=== PATIENT | female | born 1975 | race Caucasian/White ===

== ENCOUNTER 2019-01-30 18:48 | Emergency (ER) | payer MEDICAID ==
[~2019-01-30] VITALS: Ht 162.6 cm; Wt 93.9 kg
[2019-01-30 19:12] VITALS: Ht 162.6 cm; Wt 93.9 kg
[2019-01-30 20:05] LABS: BASOPHIL % 0.4 % (0-2); PLATELET COUNT 373 x10^3mcL (130-400)
[2019-01-30 20:05] LABS: microscopic required? YES; urine erythrocyte 3+ (NEGATIVE)
[2019-01-30 20:08] LABS: RED CELL DISTRIBUTION WIDTH 16.5 % (11.5-14.5)
[2019-01-30 20:30] LABS: T3 TOTAL 0.94 ng/mL
[2019-01-30 20:34] LABS: CK-MB < 0.5 ng/mL (0-3.6); CREATINE KINASE 54 U/L (26-192)
[2019-01-30 20:41] LABS: FREE T4 0.96 ng/dL (0.76-1.46); FREE THYROXINE INDEX 2.6 ug/dL (1.4-4.5)
[2019-01-30 20:49] LABS: ALBUMIN 3.6 g/dL (3.4-5.0); ALKALINE PHOSPHATASE 96 U/L (46-116); ALT/SGPT 42 U/L (14-59); AST/SGOT 24 U/L (15-37); BILIRUBIN TOTAL 0.71 mg/dL (0.20-1.00); C REACTIVE PROTEIN 6.8 mg/dL (<=0.9); CALCIUM 8.4 mg/dL (8.5-10.1); CARBON DIOXIDE 29.1 mmol/L (21-32); CHLORIDE SERUM 100 mmol/L (98-107); CREATININE SERUM 0.7 mg/dL (0.6-1.0); ERYTHROCYTE SED RATE 54 mm/hr (0-20); GFR1 > 60 mL/min; GLUCOSE SERUM 101 mg/dL (74-106); SODIUM SERUM 137 mmol/L (136-145)
[2019-01-30 20:57] LABS: POTASSIUM SERUM 2.8 mmol/L (3.5-5.1); TOTAL PROTEIN, SERUM 8.4 g/dL (6.4-8.2)
[2019-01-30 21:49] VITALS: BP 123/76
== END 2019-01-30 21:49 | disposition home or self-care (01) ==
LOC: ED 18:48
PROVIDERS: Specialist
DX: N39.0 Urinary tract infection, site not specified (principal); E87.6 Hypokalemia; E86.0 Dehydration; Z98.890 Other specified postprocedural states
CPT/HCPCS: 36600; 84439; 87804; J0696; J1885; J7030; J7060; Q0092